=== PATIENT | male | born 1960 | race Caucasian/White ===

== ENCOUNTER 2020-08-23 17:11 | Emergency (ER) | payer OTHER ==
[~2020-08-23 17:11] MED LIST: ASPIRIN CHEWABL81 MG PO; AUGMENTIN 875-1 EACH PO; FISH OIL 1,0001 EAC1 PO; LIPITOR TAB 2020 MG PO
[2020-08-23 18:17] LABS: HEMOGLOBIN 15.1 gm/dl (14.0-17.5); RED BLOOD COUNT 5.21 M/UL (4.20-5.50); WHITE BLOOD COUNT 8.6 K/UL (4.5-11.0)
[2020-08-23 18:38] LABS: BUN/CREATININE RATIO 30 (0-10)
== END 2020-08-23 23:00 | disposition home or self-care (01) ==
LOC: ER1 17:11
PROVIDERS: Physician Assistant
DX: R07.9 Chest pain, unspecified (principal); I10 Essential (primary) hypertension; R79.1 Abnormal coagulation profile; R94.5 Abnormal results of liver function studies; Z90.49 Acquired absence of other specified parts of digestive tract; Z88.1 Allergy status to other antibiotic agents; Z79.899 Other long term (current) drug therapy
CPT/HCPCS: 71045; 80053; 81001; 82550; 82553; 82962; 83690; 83874; 84484; 85025; 85379; 93005; 99285; J7030; Q9967

== ENCOUNTER → 2021-08-10 | Outpatient (CLI) | payer OTHER | LOC: CT 10:17 | DX: R10.32 Left lower quadrant pain (principal); K76.0 Fatty (change of) liver, not elsewhere classified; K57.30 Diverticulosis of large intestine without perforation or abscess without bleeding; K40.90 Unilateral inguinal hernia, without obstruction or gangrene, not specified as recurrent | CPT/HCPCS: Q9967 ==